=== PATIENT | male | born 1995 | race Two or more races ===

== ENCOUNTER 2018-04-09 22:45 | Emergency (ER) | payer MEDICAID ==
[2018-04-09 22:47] VITALS: BP 141/74
--- NOTE | 2018-04-09 22:49 | EDPHY ---
H & P Time Seen by Provider: 04/09/18 22:45 HPI/ROS: HPI CHIEF COMPLAINT: Alcohol Intoxication medical clearance for the [facility]. HISTORY OF PRESENT ILLNESS: 22-year-old male, presents to the emergency room intoxicated with alcohol. He was found by [place] police walking out of a dorm room [place] with a bottle of liquor. Brought here to the emergency room prior to going to the [facility], for medical clearance. The patient reports that he did acid approximately 2 hr ago. He typically does acid once a week. He arrives to the emergency room calm and cooperative. Smells of alcohol but no acute distress and denies any complaints. Past Medical History: Denies medical history Past Surgical History: Denies surgical history Social History: Alcohol this evening. States multiple shots. States did acid earlier. Family History: Noncontributory ROS REVIEW OF SYSTEMS: 10 Systems were reviewed and negative with the exception of the elements mentioned in the history of present illness. Exam Constitutional Intoxicated, triage nursing summary reviewed, vital signs reviewed, Sleepy, smells of alcohol Eyes normal conjunctivae and sclera, horizontal beating nystagmus consistent acute alcohol intoxication, otherwise pupils equal and react to light HENT normal inspection, atraumatic, moist mucus membranes, no epistaxis, neck supple/ no meningismus, no raccoon eyes. Respiratory clear to auscultation bilaterally, normal breath sounds, no respiratory distress, no wheezing. Cardiovascular rate normal, regular rhythm, no murmur, no edema, distal pulses normal. Gastrointestinal soft, non-tender, no rebound, no guarding, normal bowel sounds, no distension, no pulsatile mass. Genitourinary no CVA tenderness. Musculoskeletal no midline vertebral tenderness, full range of motion, no calf swelling, no tenderness of extremities, no meningismus, good pulses, neurovascularly intact. Skin pink, warm, & dry, no rash, skin atraumatic. Neurologic intoxicated with alcohol, alert and oriented x 3, AAOx3, moves all 4 extremities equally, motor intact, sensory intact, CN II-XII intact, , normal vision, normal speech. Psychiatric normal mood/affect. Heme/Lymph/Immune no lymphadenopathy. Differential Diagnosis: Includes but is not limited to in a particular order acute alcohol intoxication, alcohol abuse, dehydration, electrolyte abnormality , nausea vomiting from acute alcohol intoxication Medical Decision Making: Plan for this patient vital signs, breath alcohol, monitor. Re-evaluation: Breath alcohol 0.200 11:57 p.m. Patient resting comfortably no acute distress. Clinically sober. Mom at bedside. Would like to take him home. Vital signs are stable. He is sober. And safe for discharge. Source: Patient, Police Constitutional: Initial Vital Signs Temperature (C) 36.7 C 04/09/18 22:45 Heart Rate 94 04/09/18 22:45 Respiratory Rate 16 04/09/18 22:45 Blood Pressure 141/74 H 04/09/18 22:45 O2 Sat (%) 96 04/09/18 22:45 O2 Delivery Mode Room Air Allergies/Adverse Reactions: No Known Allergies Allergy (Unverified 04/09/18 22:45) Home Medications: Medication Instructions Recorded NK [No Known Home Meds] 04/09/18 Departure - Departure Disposition: Home, Routine, Self-Care Clinical Impression: Alcoholic intoxication Qualifiers: Complication of substance-induced condition: uncomplicated Qualified Code(s): F10.920 - Alcohol use, unspecified with intoxication, uncomplicated Condition: Good Instructions: Alcohol Intoxication (ED), Abuse of Alcohol (ED) Referrals: NONE *PRIMARY CARE P,. [Primary Care Provider] - As per Instructions
== END 2018-04-10 | disposition home or self-care (01) ==
DX: F10.920 Alcohol use, unspecified with intoxication, uncomplicated (principal)